=== PATIENT | female | born 1935 | race Caucasian/White ===

== ENCOUNTER → 2016-12-27 | Outpatient (CLI) | payer MEDICARE, OTHER ==
[2016-12-27 11:08] LABS: Basophils % (A) 1 %; CH 31.2; CHCM 35.5; Eosinophils # (A) 0.2 k/uL (0-0.7); Eosinophils % (A) 4 %; HCT 39.3 % (34.0-46.0); HDW 3.03; HGB 13.5 gm/dL (11.4-16.0); Luc # (Auto) 0.09; Luc % (Auto) 2; Lymphocytes # (A) 1.6 k/uL (1.0-4.8); Lymphocytes % (A) 36 %; MCH 30.2 pg (25.0-35.0); MCHC 34.2 g/dL (31.0-37.0); MCV 88.2 fL (80.0-100.0); Mean Platelet Volume 6.4; Monocytes # (A) 0.3 k/uL (0-1.0); Monocytes % (A) 6 %; Neutrophils # (A) 2.2 k/uL (1.3-7.7); Neutrophils % (A) 51 %; RBC 4.45 m/uL (3.80-5.40); RDW 13.4 % (11.5-15.5); WBC 4.4 k/uL (3.8-10.6); WBC (Perox) 4.43
[2016-12-27 11:20] LABS: Potassium 4.1 mmol/L (3.5-5.1)
== END | disposition home or self-care (01) ==
LOC: LABPAT 10:39
PROVIDERS: ATTEND Orthopaedic Surgery
DX: Z01.818 Encounter for other preprocedural examination (principal); G56.02 Carpal tunnel syndrome, left upper limb
CPT/HCPCS: 80051; 85025

== ENCOUNTER 2017-01-04 08:02 | Day surgery (SDC) | payer MEDICARE, OTHER ==
[2017-01-02 11:32] VITALS: BMI 23.0
--- NOTE | 2017-01-03 09:14 | HP ---
DATE OF ADMISSION: CHIEF COMPLAINT: Left hand pain and numbness. HISTORY OF PRESENT ILLNESS: The patient is an 81-year-old retired female who presents with progressive left hand pain and numbness for the past several months. She notes she is having a difficult time with gripping and grasping. She is having night symptoms. She has tried bracing. She thinks it is worsening. Past medical history is significant for hypertension, hypercholesterolemia, Parkinson's and arthritis in addition to breast cancer. PAST SURGICAL HISTORY: Significant for mastectomy. FAMILY HISTORY: Significant for heart disease and cancer. SOCIAL HISTORY: Negative for current tobacco or alcohol use. CURRENT MEDICATIONS: 1. Comtan. 2. Letrozole. 3. Pravastatin. 4. Sinemet. 5. Ibuprofen. She denies drug allergies. On examination, the patient is approximately 5 foot 3, 135 pounds of mesomorphic habitus. HEENT exam is nonfocal. Neck is supple. She is nontender about the left shoulder, elbow and wrist. On examination of the left wrist, she has a positive carpal tunnel compression test. Tinel's is positive over the carpal canal as well. Light touch is diffusely diminished in the left digits. Abductor pollicis brevis strength is 4/5. Capillary refill is less than 2 seconds throughout the left digits. EMG report 12/05/[address] Randle shows median motor latency at the carpal canal 7.45, sensory latency nonrecordable. IMPRESSION: Severe left carpal tunnel syndrome, symptomatic. RECOMMENDATIONS: I talked to the patient at length regarding her treatment options. At this point, she is quite symptomatic despite conservative measures. After a thorough discussion, she opts to proceed with surgery. We will plan to proceed with left carpal tunnel release. We will likely perform that utilizing local anesthetic and IV sedation. The risks and benefits are discussed at length in layman's terms.
[~2017-01-04 08:02] MED LIST: DEXAMETHASONE SOD PHOSPHATE 10 MG/ML 1 ML VIAL IV ONE; HYDROmorphone 1 MG/ML 1 ML SYRINGE IVP PRN; LACTATED RINGERS 1,000 ML IV SCH; LIDOCAINE 1% 20 ML VIAL (10MG/ML) FOR IV START INTRADERMA PRN; MIDAZOLAM 2 MG/2 ML VIAL IV PRN; ONDANSETRON 4 MG/2 ML VIAL IVP ONE; SCOPOLAMINE 1.5MG/72HR PATCH TRANSDERM ONE; ceFAZolin 2 GM in SODIUM CHLORIDE 0.9% 100 ML IVPB ONE
[2017-01-04 08:35] VITALS: TEMP 98.1
[2017-01-04] MEDS ORDERED: MIDAZOLAM 2 MG/2 ML VIAL ONE (09:01)
[2017-01-04] MEDS ORDERED: LIDOCAINE 1% INJ 10MG/ML (20 ML MDV) ONE (09:01)
[2017-01-04] MEDS ORDERED: fentaNYL (PF) 50 MCG/ML 2 ML AMP ONE (09:01)
[2017-01-04] MEDS ORDERED: PROPOFOL 10 MG/ML 20 ML VIAL IV ONE (09:01)
[2017-01-04] MEDS ORDERED: BUPIVACAINE (PF) 0.25% 30 ML VIAL SQ ONE ×2 (09:13)
--- NOTE | 2017-01-04 09:36 | P.OP ---
Date of Procedure: 01/04/17 Preoperative Diagnosis: Left carpal tunnel syndrome Postoperative Diagnosis: Same Procedure(s) Performed: Left carpal tunnel release Anesthesia: MAC, local Surgeon: Ino Barraza Estimated Blood Loss (ml): 1 Pathology: none sent Condition: stable Disposition: PACU Indications for Procedure: Patient is an 81-year-old female who presents with progressive left hand pain and numbness secondary to carpal tunnel syndrome despite conservative measures. She is quite symptomatic and opted to proceed. Specific risks of the procedure to include infection, neurovascular injury, development of blood clots , possible incomplete resolution of symptoms, possible worsening symptoms and need for subsequent procedures was discussed. Informed consent was obtained. Operative Findings: As below Description of Procedure: The patient was brought to the operating room, and after induction of sedation the left upper extremity was prepped and draped in normal fashion. The proposed incision site was outlined with a skin marker in line with the radial aspect the fourth ray extending from the volar wrist crease distally 2-1/2 cm. 10 cc of quarter percent plain Marcaine was injected in the proposed incision site. The tourniquet was inflated to 250 mmHg. The skin was incised sharply. Subcutaneous tissues were divided sharply. The superficial palmar fascia was identified and split in line with the skin incision. The transverse carpal ligament was identified and transected under direct visualization distally to the level of the palmar fat pad. Proximally was taken to level the volar wrist crease. A plane above and below the transverse carpal ligament was then bluntly develop with tenotomies. The confluence the distal forearm fascia and the transverse carpal ligament was then transected under direct visualization with the tines pointed in the ulnar direction. I felt there was adequate proximal release. Neural lysis was not performed. The wound was irrigated. The skin was reapproximated with simple 3-0 nylon suture. A sterile dressing was applied. The patient was awoken from sedation and transferred to recovery room in good condition. Blood loss was estimated at 1 mL. No complications were incurred. Sponge and needle counts were correct at the case.
[2017-01-04 09:40] VITALS: RESP 16
[2017-01-04 10:13] VITALS: BP 109/60; PULSE 71
== END 2017-01-04 10:29 | disposition home or self-care (01) ==
LOC: OR 08:02
PROVIDERS: ATTEND Orthopaedic Surgery
DX: G56.02 Carpal tunnel syndrome, left upper limb (principal); I10 Essential (primary) hypertension; E78.5 Hyperlipidemia, unspecified; E78.00 Pure hypercholesterolemia, unspecified; G20 Parkinson's disease; M19.90 Unspecified osteoarthritis, unspecified site; Z85.3 Personal history of malignant neoplasm of breast; Z90.10 Acquired absence of unspecified breast and nipple; Z79.1 Long term (current) use of non-steroidal anti-inflammatories (NSAID); Z79.899 Other long term (current) drug therapy
CPT/HCPCS: 64721; J2250; J1100; J0690; J2405; J2001; J3010; J2704